=== PATIENT | female | born 1985 | race American Indian/Alaskan Native ===

== ENCOUNTER 2022-01-26 11:28 | Day surgery (SDC) | payer MEDICAID ==
[2022-01-26] MEDS ORDERED: ceFAZolin/STERILE WATER 2 GM/20 ML SYRINGE IV NR (12:00)
[2022-01-26 12:10] LABS: Hemoglobin 13.7 gm/dl (10.1-14.3); Mean Corpuscular HGB Conc 33 % (30-34); Mean Corpuscular Volume 87 fl (79-97); Platelet Count 279 K/mm3 (140-440); Red Blood Count 4.82 M/mm3 (3.65-5.03); Red Cell Distribution Width 14.6 % (13.2-15.2)
[2022-01-26 12:21] LABS: INR 1.13 (0.87-1.13)
[2022-01-26 12:23] LABS: Blood Urea Nitrogen 14 mg/dL (7-17); Calcium 9.9 mg/dL (8.4-10.2); Hemolysis Index 0
[2022-01-26 12:24] LABS: BUN/Creatinine Ratio 23
[2022-01-26] MEDS: SODIUM CHLORIDE 0.9% 500 ML 500 ML IV SCH ×2 (12:34→13:12)
[2022-01-26] MEDS ORDERED: CLINDAMYCIN 600 MG/50 mL 600 MG/50 ML BAG IV ONE (12:40)
[2022-01-26] MEDS: fentaNYL 100 MCG/2 ML INJ ONE ×2 (13:10→13:17)
[2022-01-26] MEDS: MIDAZOLAM 2 MG/2 ML INJ ONE ×2 (13:10→13:16)
[2022-01-26] MEDS: LIDOCAINE (1%) 10 MG/1 ML VIAL 20 ML MDV ONE ×2 (13:11→13:19)
[2022-01-26] MEDS: HEPARIN/NS 5000 UNIT/500ML 1,000 ML IR ONE ×2 (13:12→13:20)
--- NOTE | 2022-01-26 14:48 | Short Stay Summary ---
Short Stay Documentation Date of service: 01/26/22 Narrative H&P: See H&P - History H&P: obtained from office - Allergies and Medications Current Medications: Allergies ampicillin Allergy (Verified 01/26/22 12:37) Unknown Active Medications Sodium Chloride (Nacl 0.9% 500 Ml) 500 mls @ 50 mls/hr IV DIRECT IZAIAH Last Admin: 01/26/22 13:12 Dose: 50 mls/hr - Brief post op/procedure progress note Date of procedure: 01/26/22 Pre-op diagnosis: Peripheral Vascular Disease with Bilateral Lower Extremity Ulceration Post-op diagnosis: other (Bilateral Lower Extremity Ulceration) Procedure: 1. Ultrasound-Guided Access Left Common Femoral Artery 2. Diagnostic Aortogram (No Previous Films for Comparison) 3. Bilateral Lower Extremity Runoff (No Previous Films for Comparison) 4. Third Order Catheter Placement 5. Radiologic Supervision with Interpretation 6. Monitored Moderate Sedation (Total Anesthesia Time: 29 Minutes) Anesthesia: local, other (Monitored Moderate Sedation) Surgeon: SHIRLEY LANIER Estimated blood loss: minimal Pathology: none Condition: stable - Disposition Condition at discharge: Good Disposition: [facility] Short Stay Discharge Plan Wound: remove dressing (In 48 hours. After removing the dressing it is okay to wash the wound with soap and water but do not soak in water for 2 weeks.) Follow up with: SHIRLEY LANIER MD [Staff Physician] - 14 Days Forms: Post Arteriogram Instruct
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
[2022-01-26 15:02] VITALS: BP 105/66
== END 2022-01-26 15:20 ==
LOC: CATHLABREC 11:28
PROVIDERS: ATTEND Surgery Vascular Surgery
DX: I70.213 Atherosclerosis of native arteries of extremities with intermittent claudication, bilateral legs (principal); L97.829 Non-pressure chronic ulcer of other part of left lower leg with unspecified severity; L97.819 Non-pressure chronic ulcer of other part of right lower leg with unspecified severity; I10 Essential (primary) hypertension; F32.9 Major depressive disorder, single episode, unspecified; Z88.8 Allergy status to other drugs, medicaments and biological substances; Z79.899 Other long term (current) drug therapy; Z98.890 Other specified postprocedural states
CPT/HCPCS: 36247; 36415; 75625; 75716; 80048; 85027; 85610; 99156; 99175; C1760; C1769; C1887; J1644; J2250; J3010; J7040; J7502; Q9967

== ENCOUNTER 2022-04-20 11:18 | Emergency (ER) | payer MEDICAID ==
[2022-04-20 11:29] VITALS: BP 120/68
[2022-04-20] MEDS ORDERED: KETOROLAC 30 MG/1 ML INJ IV ONE (11:54)
[2022-04-20] MEDS ORDERED: diazePAM 10 MG/2 ML SYRINGE IV ONE (11:54)
[2022-04-20 14:17] LABS: Basophils % (Auto) 0.3 % (0.0-1.8); Eosinophils # (Auto) 0.1 K/mm3 (0.0-0.4); Eosinophils % (Auto) 0.8 % (0.0-4.3); Hematocrit 45.3 % (30.3-42.9); Hemoglobin 14.5 gm/dl (10.1-14.3); Lymphocytes # (Auto) 2.1 K/mm3 (1.2-5.4); Lymphocytes % (Auto) 25.8 % (13.4-35.0); Mean Corpuscular HGB Conc 32 % (30-34); Mean Corpuscular Volume 87 fl (79-97); Monocytes # (Auto) 0.4 K/mm3 (0.0-0.8); Monocytes % (Auto) 4.5 % (0.0-7.3); Platelet Count 302 K/mm3 (140-440); Red Blood Count 5.19 M/mm3 (3.65-5.03); Red Cell Distribution Width 13.7 % (13.2-15.2)
[2022-04-20 14:32] LABS: Alanine Aminotransferase 19 units/L (7-56); Albumin 4.2 g/dL (3.9-5); Blood Urea Nitrogen 17 mg/dL (7-17); Hemolysis Index 109
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
[2022-04-20 14:44] LABS: BUN/Creatinine Ratio 34
[2022-04-20] MEDS ORDERED: ONDANSETRON 4 MG ODT TAB PO ONE (15:04)
[2022-04-20] MEDS ORDERED: HYDROcodone/ACETAMINOPHEN 5-325 MG TAB PO ONE (15:04)
[2022-04-20] MEDS ORDERED: IBUPROFEN 600 MG TAB PO ONE (15:04)
[2022-04-20 16:13] LABS: Hyaline Casts,Urine 5 /LPF; Mucus,Urine 3+ /HPF
[2022-04-20 16:19] LABS: Bilirubin,Urine Negative (Negative); Blood,Urine Negative (Negative); Color,Urine Straw (Yellow); Urobilinogen,Urine < 2.0 mg/dL (<2.0)
--- NOTE | 2022-04-20 17:11 | Emergency Department Report ---
ED Fall HPI - General Chief Complaint: Fall Stated Complaint: BILATERAL LEG PAIN Source: patient, EMS Mode of arrival: Stretcher - History of Present Illness Initial Comments: Per EMS, patient is a 36-year-old -Marshallese female with a history of TBI and dementia, and insulin-dependent diabetes and hypertension and baseline nonambulatory and nonverbal due to previous TBI and who presented to the ED for evaluation after she fell at the snf about 2 days ago. Patient therefore has been complaining of bilateral leg pain following the fall injury at the snf. According to EMS, patient has not had any chest pain or shortness of breath, loss of consciousness, head or neck injuries, back pain, nausea and vomiting, abdominal pain or change in vision. 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 denies: headache, neck pain, numbness, weakness, chest paint, shortness of breath, abdominal pain, hematuria, lightheaded, vertigo, confusion, other - Related Data Previous Rx's Medication Instructions Recorded Last Taken Type Baclofen 20 mg PO Q12H PRN #30 tab 04/20/22 Unknown Rx Ibuprofen [Motrin] 800 mg PO Q8HR PRN #30 tablet 04/20/22 Unknown Rx traMADoL [Ultram] 50 mg PO Q6HR PRN #12 tablet 04/20/22 Unknown Rx Allergies Allergy/AdvReac Type Severity Reaction Status Date / Time ampicillin Allergy Unknown Verified 04/20/22 11:29 ED Review of Systems ROS: Stated complaint: BILATERAL LEG PAIN Other details as noted in HPI Constitutional: denies: chills, fever Eyes: denies: eye pain, eye discharge, vision change ENT: denies: ear pain, throat pain Respiratory: denies: cough, shortness of breath, wheezing Cardiovascular: denies: chest pain, palpitations Endocrine: no symptoms reported Gastrointestinal: denies: abdominal pain, nausea, vomiting, diarrhea Genitourinary: denies: urgency, dysuria, discharge Musculoskeletal: arthralgia (Bilateral leg, hip and knee pain), myalgia. denies: back pain, joint swelling Skin: denies: rash, lesions Neurological: denies: headache, weakness, paresthesias Psychiatric: denies: anxiety, depression Hematological/Lymphatic: denies: easy bleeding, easy bruising ED Past Medical Hx - Past Medical History Hx Hypertension: Yes Hx Diabetes: Yes Hx Dementia: Yes Additional medical history: TBI and nonverbal, nonambulatory - Social History Smoking Status: Never Smoker - Medications Home Medications: Home Medications Medication Instructions Recorded Confirmed Last Taken Type Baclofen 20 mg PO Q12H PRN #30 tab 04/20/22 Unknown Rx Ibuprofen [Motrin] 800 mg PO Q8HR PRN #30 tablet 04/20/22 Unknown Rx traMADoL [Ultram] 50 mg PO Q6HR PRN #12 tablet 04/20/22 Unknown Rx ED Physical Exam - General Limitations: Physical Limitation General appearance: alert, in no apparent distress - Head Head exam: Present: atraumatic, normocephalic, normal inspection - Eye Eye exam: Present: normal appearance, PERRL, EOMI Pupils: Present: normal accommodation - ENT ENT exam: Present: normal exam, normal orophraynx, mucous membranes moist, TM's normal bilaterally, normal external ear exam - Neck Neck exam: Present: normal inspection, full ROM. Absent: tenderness - Respiratory Respiratory exam: Present: normal lung sounds bilaterally. Absent: respiratory distress, wheezes, rales, rhonchi, chest wall tenderness, accessory muscle use, decreased breath sounds, prolonged expiratory - Cardiovascular Cardiovascular Exam: Present: regular rate, normal rhythm, normal heart sounds. Absent: systolic murmur, diastolic murmur, rubs, gallop - GI/Abdominal GI/Abdominal exam: Present: soft, normal bowel sounds. Absent: tenderness, guarding, rebound, hyperactive bowel sounds, hypoactive bowel sounds - Extremities Exam Extremities exam: Present: normal inspection, tenderness (Palpable bilateral knee and hip tenderness with limited range of motion due to pain), normal capillary refill. Absent: full ROM (Limited range of motion of bilateral knees and hips due to pain), pedal edema, joint swelling, calf tenderness - Back Exam Back exam: Present: normal inspection, full ROM. Absent: tenderness, CVA tenderness (R), CVA tenderness (L), muscle spasm, vertebral tenderness - Neurological Exam Neurological exam: Present: alert, oriented X3, CN II-XII intact, abnormal gait (Nonambulatory due to previous TBI), reflexes normal - Psychiatric Psychiatric exam: Present: normal affect, normal mood, anxious - Skin Skin exam: Present: warm, dry, intact, normal color. Absent: rash ED Course Vital Signs 04/20/22 11:27 Temperature 98.1 F Pulse Rate 60 Respiratory 18 Rate Blood Pressure 120/68 [Left] O2 Sat by Pulse 98 Oximetry ED Medical Decision Making - Lab Data Result diagrams: 04/20/22 12:03 04/20/22 12:03 - Radiology Data Radiology results: report reviewed, image reviewed [facility] [address] [place] [address] XRay Report Signed Patient: MONA TOBAR MR#: [id number] : 1985 Acct:[id number] Age/Sex: 36 / F ADM Date: 04/20/22 Loc: ED Attending Dr: Ordering Physician: MELBA PEDRAZA Date of Service: 04/20/22 Procedure(s): XR hips BILAT 2V w/pelvis Accession Number(s): [id number] cc: MELBA PEDRAZA Fluoro Time In Minutes: LUMBAR SPINE 3 VIEWS INDICATION / CLINICAL INFORMATION: PAIN - S/P FALL. COMPARISON: None available FINDINGS: VERTEBRAE: No acute fracture. No significant malalignment. DISC SPACES / FACET JOINTS:No significant abnormality. PARASPINAL SOFT TISSUES:No significant abnormality. ADDITIONAL FINDINGS: G-tube is noted left upper quadrant. Tubing is noted overlying the central abdomen. BILATERAL HIP 2 VIEW(S) INDICATION / CLINICAL INFORMATION: PAIN - S/P FALL COMPARISON: None available. FINDINGS: BONES / JOINT(S): Deformity of the left superior and inferior pubic rami which suggests sequela of prior trauma. No significant arthritis. SOFT TISSUES: No significant abnormality. ADDITIONAL FINDINGS: Tubing overlying central abdomen. BILATERAL KNEE 2 VIEW(S) INDICATION / CLINICAL INFORMATION: PAIN - S/P FALL COMPARISON: None available. FINDINGS: BONES / JOINT(S): There is suggestion of a avulsion fracture along the lateral aspect of the right lateral femoral condyle. There is bony excrescence off the right medial femoral condyle likely sequela of prior trauma. No acute fracture or subluxation of the left knee. No significant arthritis. SOFT TISSUES: No significant abnormality. ADDITIONAL FINDINGS: None. IMPRESSION: 1. Suggestion of avulsion fracture along the lateral aspect of the right lateral femoral condyle. Correlate with point tenderness. No acute osseous abnormality of the left knee. 2. Deformity of the left superior and inferior pubic rami which suggests sequela of prior trauma, correlate clinically. 3. No acute osseous abnormality involving the lumbar spine. Signer Name: Brad Perkins DO Signed: 04/20/2022 2:27 PM Workstation Name: [id number] Transcribed By: LAI Dictated By: BRAD PERKINS DO Electronically Authenticated By: BRAD PERKINS DO Signed Date/Time: 04/20/221426 DD/ 19 TD/TT: [facility] [address] [place] [address] XRay Report Signed Patient: MONA TOBAR MR#: [id number] : 1985 Acct:[id number] Age/Sex: 36 / F ADM Date: 04/20/22 Loc: ED Attending Dr: Ordering Physician: MELBA PEDRAZA Date of Service: 04/20/22 Procedure(s): XR knee BILAT 1-2V Accession Number(s): [id number] cc: MELBA PEDRAZA Fluoro Time In Minutes: LUMBAR SPINE 3 VIEWS INDICATION / CLINICAL INFORMATION: PAIN - S/P FALL. COMPARISON: None available FINDINGS: VERTEBRAE: No acute fracture. No significant malalignment. DISC SPACES / FACET JOINTS:No significant abnormality. PARASPINAL SOFT TISSUES:No significant abnormality. ADDITIONAL FINDINGS: G-tube is noted left upper quadrant. Tubing is noted overlying the central abdomen. BILATERAL HIP 2 VIEW(S) INDICATION / CLINICAL INFORMATION: PAIN - S/P FALL COMPARISON: None available. FINDINGS: BONES / JOINT(S): Deformity of the left superior and inferior pubic rami which suggests sequela of prior trauma. No significant arthritis. SOFT TISSUES: No significant abnormality. ADDITIONAL FINDINGS: Tubing overlying central abdomen. BILATERAL KNEE 2 VIEW(S) INDICATION / CLINICAL INFORMATION: PAIN - S/P FALL COMPARISON: None available. FINDINGS: BONES / JOINT(S): There is suggestion of a avulsion fracture along the lateral aspect of the right lateral femoral condyle. There is bony excrescence off the right medial femoral condyle likely sequela of prior trauma. No acute fracture or subluxation of the left knee. No significant arthritis. SOFT TISSUES: No significant abnormality. ADDITIONAL FINDINGS: None. IMPRESSION: 1. Suggestion of avulsion fracture along the lateral aspect of the right lateral femoral condyle. Correlate with point tenderness. No acute osseous abnormality of the left knee. 2. Deformity of the left superior and inferior pubic rami which suggests sequela of prior trauma, correlate clinically. 3. No acute osseous abnormality involving the lumbar spine. Signer Name: Brad Perkins DO Signed: 04/20/2022 2:27 PM Workstation Name: [id number] Transcribed By: LAI Dictated By: BRAD EPRKINS DO Electronically Authenticated By: BRAD PERKINS DO Signed Date/Time: 04/20/221426 DD/ 19 TD/TT: [facility] [address] [place] [address] XRay Report Signed Patient: MONA TOBAR MR#: [id number] : 1985 Acct:[id number] Age/Sex: 36 / F ADM Date: 04/20/22 Loc: ED Attending Dr: Ordering Physician: MELBA PEDRAZA Date of Service: 04/20/22 Procedure(s): XR spine lumbosacral 2-3V Accession Number(s): [id number] cc: MELBA PEDRAZA Fluoro Time In Minutes: LUMBAR SPINE 3 VIEWS INDICATION / CLINICAL INFORMATION: PAIN - S/P FALL. COMPARISON: None available FINDINGS: VERTEBRAE: No acute fracture. No significant malalignment. DISC SPACES / FACET JOINTS:No significant abnormality. PARASPINAL SOFT TISSUES:No significant abnormality. ADDITIONAL FINDINGS: G-tube is noted left upper quadrant. Tubing is noted overlying the central abdomen. BILATERAL HIP 2 VIEW(S) INDICATION / CLINICAL INFORMATION: PAIN - S/P FALL COMPARISON: None available. FINDINGS: BONES / JOINT(S): Deformity of the left superior and inferior pubic rami which suggests sequela of prior trauma. No significant arthritis. SOFT TISSUES: No significant abnormality. ADDITIONAL FINDINGS: Tubing overlying central abdomen. BILATERAL KNEE 2 VIEW(S) INDICATION / CLINICAL INFORMATION: PAIN - S/P FALL COMPARISON: None available. FINDINGS: BONES / JOINT(S): There is suggestion of a avulsion fracture along the lateral aspect of the right lateral femoral condyle. There is bony excrescence off the right medial femoral condyle likely sequela of prior trauma. No acute fracture or subluxation of the left knee. No significant arthritis. SOFT TISSUES: No significant abnormality. ADDITIONAL FINDINGS: None. IMPRESSION: 1. Suggestion of avulsion fracture along the lateral aspect of the right lateral femoral condyle. Correlate with point tenderness. No acute osseous abnormality of the left knee. 2. Deformity of the left superior and inferior pubic rami which suggests sequela of prior trauma, correlate clinically. 3. No acute osseous abnormality involving the lumbar spine. Signer Name: Brad Perkins DO Signed: 04/20/2022 2:27 PM Workstation Name: [id number] Transcribed By: LAI Dictated By: BRAD PERKINS DO Electronically Authenticated By: BRAD PERKINS DO Signed Date/Time: 04/20/221426 DD/ 19 TD/TT: - Medical Decision Making This is a 36-year-old -Marshallese female with a history of TBI and dementia, and insulin-dependent diabetes and hypertension and baseline nonambulatory and nonverbal due to previous TBI and who presented to the ED for evaluation after she fell at the snf about 2 days ago. Patient therefore has been complaining of bilateral leg pain following the fall injury at the snf. In the ED, patient is alert and oriented x3 and is not in any distress. Lab test results were reviewed and are all nonactionable. The L- spine x-ray showed no acute fractures or subluxations. The hip x-rays showed no acute fractures or subluxations but evidence of prior injury. Bilateral knee x-rays showed no actual fractures or subluxation although there was a suggestion of avulsion fracture along the lateral aspect of the right lateral femoral condyle, however there is no point tenderness in the area of concern. On reevaluation, patient's pain is well controlled medication. Patient was discharged home on pain medications and advised the family to have the patient follow-up with a primary care physician in 5 to 7 days for reevaluation or have the patient return to the ED immediately if symptoms get worse. - Differential Diagnosis leg contusion; hip sprain; knee sprain; knee fracture Critical care attestation.: If time is entered above; I have spent that time in minutes in the direct care of this critically ill patient, excluding procedure time. ED Disposition Clinical Impression: Chronic pain syndrome, Knee sprain, bilateral, Spasm of muscle of lower back Contusion, hip and thigh Qualifiers: Encounter type: initial encounter Laterality: right Qualified Code(s): S70.01XA - Contusion of right hip, initial encounter; S70.11XA - Contusion of right thigh, initial encounter Disposition: HOME / SELF CARE / HOMELESS Is pt being admited?: No Does the pt Need Aspirin: No Condition: Stable Instructions: Contusion, [id number], Chronic Pain, Adult Additional Instructions: Take medication with food, drink plenty of fluids and follow up with your Primary Care Physician in 7-10 days for reevaluation. Return to the ED i mmediately if symptoms get worse. Prescriptions: Baclofen 20 mg PO Q12H PRN #30 tab PRN Reason: Muscle Spasm Ibuprofen [Motrin] 800 mg PO Q8HR PRN #30 tablet PRN Reason: Pain , Severe (7-10) traMADoL [Ultram] 50 mg PO Q6HR PRN #12 tablet PRN Reason: Pain Referrals: [facility] [Provider Group] - 7-10 days Time of Disposition: 17:23 Print Language: UKRAINIAN
== END 2022-04-20 19:31 | disposition home or self-care (01) ==
LOC: ED 11:18
DX: S83.92XA Sprain of unspecified site of left knee, initial encounter (principal); S83.91XA Sprain of unspecified site of right knee, initial encounter; S70.01XA Contusion of right hip, initial encounter; S70.11XA Contusion of right thigh, initial encounter; M62.830 Muscle spasm of back; G89.4 Chronic pain syndrome; X58.XXXA Exposure to other specified factors, initial encounter; Y93.89 Activity, other specified; Y92.89 Other specified places as the place of occurrence of the external cause; Y99.8 Other external cause status
CPT/HCPCS: 36415; 72100; 73521; 80053; 81001; 85025; 99284; J3490; Q0162